=== PATIENT | male | born 1960 ===

== ENCOUNTER 2024-07-28 07:45 | Inpatient (IN) | payer OTHER ==
[~2024-07-28] VITALS: Ht 162.6 cm; Wt 59.9 kg
[2024-07-28 07:55] LABS: URINE APPEARANCE Clear; URINE BILIRRUBIN Negative (NEGATIVE); URINE BLOOD Negative; URINE COLOR Yellow; URINE GLUCOSE Negative (NEGATIVE); URINE KETONE Negative (NEGATIVE); URINE LEUKOCYTE Negative; URINE NITRATE Negative; URINE PROTEIN Negative (NEGATIVE); URINE UROBILINOGEN 0.2 E.U./dl
[2024-07-28 07:59] LABS: URINE BACTERIA 20.1 uL (0.0-1933); URINE EPITHELIAL CELLS 2.7 uL (0.0-38.8); URINE WBC 2.9 uL (0.0-23.2)
[2024-07-28 08:01] LABS: URINE RBC 0.1 uL (0.0-20.8)
[2024-07-28 08:02] LABS: HEMATOCRIT 50.8 % (39.0-48.0); HEMOGLOBIN 17.6 g/dL (13-16.00); MEAN CELL VOLUME 88.5 fL (80.0-100.00); MEAN CORPUSCULAR HEMOGLOBIN 30.6 pg (27.00-32.0); MEAN CORPUSCULAR HGB CONC 34.6 g/dl (32.0-36.0); PLATELET COUNT 307 K/uL (150-450); RED BLOOD COUNT 5.74 M/uL (4.00-6.00); RED CELL DISTRIBUTION WIDTH 13.7 % (11.5-14.5)
[2024-07-28 08:35] LABS: INR 1.18; PARTIAL THROMBOPLASTIN TIME 26.7 SECONDS (22.0-34.0); PROTHROMBIN TIME 12.7 SECONDS (9.0-11.5)
[2024-07-28 09:06] LABS: ALBUMIN 3.8 gm/dL (3.4-5.0); BILIRUBIN TOTAL 0.58 mg/dL (0.3-1.2); CALCIUM 10.5 mg/dL (8.5-10.1); CREATININE SERUM 0.95 mg/dL (0.70-1.30); GFR 80.33; GLOBULINA 3.4 G/DL (2.4-3.5); POTASSIUM 5.24 mEq/L (3.5-5.1); TOTAL PROTEIN 7.2 gm/dL (6.4-8.2)
[2024-08-29] MEDS ORDERED: DEXAMETHASONE SODIUM PHOSPHATE 4 MG/ML VIAL IV ONE (14:15)
[2024-08-29] MEDS ORDERED: CEFAZOLIN SODIUM 1,000 MG VIAL IV ONE (14:15)
[2024-08-29] MEDS ORDERED: Calcium Carbonate 1 TAB TABLET PO SCH (15:36)
[2024-08-29] MEDS ORDERED: MONTELUKAST SODIUM 10 MG TABLET PO SCH (15:40)
[2024-08-29] MEDS ORDERED: METOPROLOL TARTRATE 100 MG TABLET PO SCH (15:40)
[2024-08-29] MEDS ORDERED: SIMVASTATIN 40 MG TABLET PO SCH (15:40)
[2024-08-29] MEDS ORDERED: ENALAPRILAT DIHYDRATE 1.25 MG/ML VIAL IV PRN (15:45)
[2024-08-29] MEDS ORDERED: MORPHINE SULFATE 4 MG/ML VIAL IV ONE ×3 (15:45→16:45)
[2024-08-29] MEDS ORDERED: ONDANSETRON HCL 2 MG/ML VIAL IV PRN (15:45)
[2024-08-29] MEDS ORDERED: ACETAMINOPHEN 500 MG GEL..CAP PO SCH (17:00)
[2024-08-29] MEDS ORDERED: CYCLOBENZAPRINE HCL 5 MG TABLET PO SCH (17:00)
[2024-08-29] MEDS ORDERED: TRAMADOL HCL 50 MG TABLET PO SCH (17:00)
[2024-08-29] MEDS ORDERED: ENALAPRILAT DIHYDRATE 1.25 MG/ML VIAL IV ONE ×2 (17:15→17:45)
[2024-08-29] MEDS ORDERED: PANTOPRAZOLE SODIUM 40 MG/VIAL VIAL IV PUSH SCH (21:00)
[2024-08-29 21:39] VITALS: BP 151/81; O2SAT 95
[2024-08-30] VITALS: BP 149/84; O2SAT 95
[2024-08-30] MEDS ORDERED: MORPHINE SULFATE 4 MG/ML CARTRIDGE IV ONE (00:15)
[2024-08-30] MEDS ORDERED: LEVOTHYROXINE SODIUM 88 MCG TABLET PO SCH (06:00)
[2024-08-30 08:00] VITALS: BP 160/82; O2SAT 95
[2024-09-01 06:05] LABS: hav igm Negative (Negative); hcv Non Reactive (Non Reactive); hep b c Negative (Negative); hep b s ag Negative (Negative)
== END 2024-08-30 12:40 | disposition home or self-care (01) | DRG 627 ==
LOC: SURH 08-08 07:00 → O/R 08-29 07:57 → SURG 08-29 15:56
PROVIDERS: ADMIT Surgery; ATTEND Surgery
PROC: 0GTH0ZZ Resection of Right Thyroid Gland Lobe, Open Approach (ICD-10-PCS; principal; 2024-08-29 12:30)
DX: E06.3 Autoimmune thyroiditis (principal); E05.00 Thyrotoxicosis with diffuse goiter without thyrotoxic crisis or storm; E04.1 Nontoxic single thyroid nodule; Z20.822 Contact with and (suspected) exposure to COVID-19

== ENCOUNTER 2024-08-08 09:27 | Outpatient (CLI) | payer OTHER ==
[2024-08-08 10:15] LABS: INR 1.23; PARTIAL THROMBOPLASTIN TIME 27.3 SECONDS (22.0-34.0)
[2024-08-08 10:16] LABS: PROTHROMBIN TIME 13.2 SECONDS (9.0-11.5)
== END 2024-08-08 11:32 | disposition home or self-care (01) ==
LOC: LAB 09:27
PROVIDERS: ATTEND Anesthesiology
DX: D68.9 Coagulation defect, unspecified (principal)